=== PATIENT | male | born 1985 | race American Indian/Alaskan Native ===

== ENCOUNTER 2017-10-25 09:45 | Emergency (ER) | payer BC ==
[2017-10-25 09:52] VITALS: BMI 21.5
[2017-10-25 09:59] VITALS: RESP 18; TEMP 98.7
[2017-10-25] MEDS ORDERED: Oxycodone/Acetaminophen 5/325 mg Tab PO STA ×2 (10:00→13:03)
--- NOTE | 2017-10-25 10:08 | ED PDOC ---
Arrival/HPI - General Chief Complaint: Groin Pain Time Seen by Provider: 10/25/17 09:50 Historian: Patient - History of Present Illness Narrative History of Present Illness (Text): 10/25/17 10:03 32 year old male, with no significant past medical history, who presents to the emergency department complaining of left groin discomfort for 3 days. Patient notes he was playing soccer, when he felt mild left groin discomfort while kicking the ball. Patient didn't finish the game but was able to walk after the game. Patient notes pain didn't bother his walking or while he was at work initially, 3 days ago. Patient took over the counter medication with minimal relief. Patient states 2 days ago, while at work, the left groin pain became severe and today, when he woke up, he began experiencing trouble doing daily chores; pt is now having difficulty with just walking/changing positions. Patient denies any fever, chills, sweats, chest pain, shortness of breath, nausea, vomiting, diarrhea, urinary symptoms, back pain, neck pain, headache, dizziness, rectal/penile numbness/tingling, or any other complaints. pt is here for further eval. PCP: none Time/Duration: < week (3 days) Symptom Onset: Gradual Symptom Course: Worsening Severity Level: 8, Severe Activities at Onset: Significant Context: Home Past Medical History - Provider Review Nursing Documentation Reviewed: Yes - Travel History Have you recently traveled outside [place] w/in the past 3 mons?: No - Past History Past History: Non-Contributing - Infectious Disease Hx of Infectious Diseases: None - Psychiatric Hx Substance Use: No - Anesthesia Hx Anesthesia: No Family/Social History - Physician Review Nursing Documentation Reviewed: Yes Family/Social History: Unknown Family HX Smoking Status: Never Smoked Hx Alcohol Use: Yes Frequency of alcohol use: Socially Hx Substance Use: No Hx Substance Use Treatment: No Allergies/Home Meds Allergies/Adverse Reactions: Allergies No Known Allergies Allergy (Verified 10/25/17 09:52) Review of Systems - Physician Review All systems were reviewed & negative as marked: Yes - Review of Systems Constitutional: Normal Eyes: Normal ENT: Normal Respiratory: Normal. absent: SOB, Cough Cardiovascular: Normal. absent: Chest Pain Gastrointestinal: Normal. absent: Abdominal Pain, Diarrhea, Nausea, Vomiting Genitourinary Male: Normal. absent: Dysuria, Frequency Musculoskeletal: Other (left groin pain). absent: Back Pain, Neck Pain Skin: Normal. absent: Rash Neurological: Normal. absent: Headache, Dizziness Endocrine: Normal Hemo/Lymphatic: Normal Psychiatric: Normal Physical Exam - Physical Exam Narrative Physical Exam (Text): 10/25/17 10:11 General: alert/awake, GCS = 15, oriented x 3, resting in bed, uncomfortable, cooperative, interactive; mild-moderate distress noted due to pain Head: NC/AT EYE: PERRLA, EOMI, sclera anicteric, no nystagmus, no photophobia; visual field intact b/l Facial: WNL Oral: uvula/tongue are midline, no exudate/lesions, no drooling/stridor, no dysphonia; intact dentitions NECK: intact ROM, no midline tenderness, no nuchal rigidity, no meningeal signs ; no step off Chest: CTA b/l, no w/r/r; no tachypenia, no accessory muscle use noted Chest Wall: no crepitus, no lesions, no gross deformities, no focal tenderness Cardiac: +S1, +S2, no m/r/r, no tachycardia Abdominal: +BS, soft/nd, + left groin/inguinal/upper thigh region tenderness, well nourished patient; no masses/rebound/guarding/rigidity; no hollins's sign, no mcburney's point tenderness Extremities: decr ROM to left leg due to pain with knee flexion/leg raising, as described left groin/inguinal/upper thigh region tenderness with mild swelling noted on exam; strength 5/5 grossly intact in all limbs, neurovasc intact b/l; reflex +2/2; no gross deformities noted BACK: no step off, no midline tenderness, NO crepitus, no gross deformities noted; Intact ROM SKIN: cap refill < 1 sec, no ulcerations, no petechiae, no rashes; no gross pallor noted NEURO: CNII-XII WNL, no facial asymmetries, no slurr speech, oriented x 3 NIH stroke scale ~ 0 Psych: normal insight, normal affect; follows command with ease Vital Signs Reviewed: Yes Vital Signs Temp Pulse Resp BP Pulse Ox 10/25/17 14:09 78 18 124/76 99 10/25/17 09:45 98.7 F 79 18 121/80 98 Temperature: Afebrile Blood Pressure: Normal Pulse: Regular Respiratory Rate: Normal Appearance: Positive for: Well-Appearing, Non-Toxic, Uncomfortable. No: Comfortable, Ill-Appearing, Unkept Pain Distress: Mild Mental Status: Positive for: Alert and Oriented X 3 - Systems Exam Head: Present: Atraumatic, Normocephalic Medical Decision Making ED Course and Treatment: 10/25/17 10:11 Impression: 32 year old male presents to the emergency department complaining of left groin discomfort. left groin pain s/p soccer 3 days ago; ? muscle strain, unlikely complete tear, unlikely fracture Plan: -- US -- Urinalysis -- Valium -- Toradol -- Percocet -- Reassess and disposition Progress Notes: 1115am pt is feeling very mild improved pt is awaiting diagnostic results 10/25/17 13:[address] Faustin, ortho parachute cushion installer, made aware, agrees with emergency department mgt/txt, will see patient in his office tomorrow, agrees with crutches, pt can be discharged home with outpt f/u vital signs remained stable 10/25/17 1345 pt is made aware of his medical results pt is encouraged no heavy weight bearing; to ambulate with crutches; no contact sports pt is encouraged outpt follow up pt will be discharged home Re-evaluation Time: 13:30 Reassessment Condition: Improving,but remains with symptoms - Lab Interpretations Lab Results: Lab Results 10/25/17 11:18: Urine Color Light yellow, Urine Appearance Clear, Urine pH 7.0, Ur Specific [place] <= 1.005, Urine Protein Negative, Urine Glucose (UA) Negative, Urine Ketones Negative, Urine Blood Negative, Urine Nitrate Negative, Urine Bilirubin Negative, Urine Urobilinogen 0.2, Ur Leukocyte Esterase Negative I have reviewed the lab results: Yes Interpretation: All labs normal - RAD Interpretation Narrative RAD Interpretations (Text): 10/25/17 11:03 prelim report left groin u/s - NO hematoma/abnl noted, as per radiology PROCEDURE: Ultrasound soft tissue left lower extremity HISTORY: L groin/inguinal/abd region pain, s/p soccer mond COMPARISON: Not available TECHNIQUE: Targeted examination of the left inguinal region was performed utilizing a linear array color Doppler transducer. FINDINGS: There is no solid mass or fluid collection identified in the region of concern in the left inguinal region. Several unremarkable inguinal lymph nodes are identified, up to 5 mm in short axis. IMPRESSION: No evidence of hematoma in left inguinal region. Unremarkable examination. 10/25/17 13:47 pelvis/right hip xray - PROCEDURE: Left Hip and pelvis X-ray Radiographs. HISTORY: left groin pain, played soccer 3D ago, no trauma COMPARISON: None. FINDINGS: BONES: Normal. No fracture. JOINTS: Normal. SOFT TISSUES: Normal. OTHER FINDINGS: None. IMPRESSION: Negative study Radiology Orders: 10/25/17 11:00 EXTREMITY NON VASCULAR LT [US] Stat 10/25/17 12:52 Hip Left [HIP MIN 4V W/ PELVIS LT] [RAD] Stat Unit Assembler: Radiologist - Medication Orders Current Medication Orders: Discontinued Medications Diazepam (Valium) 5 mg PO ONCE ONE PRN Reason: Protocol Stop: 10/25/17 10:01 Last Admin: 10/25/17 10:11 Dose: 5 mg Ketorolac Tromethamine (Toradol) 30 mg IM STAT STA Stop: 10/25/17 10:00 Last Admin: 10/25/17 10:11 Dose: 30 mg MAR Pain Assessment Document 10/25/17 10:11 GMD (Rec: 10/25/17 10:11 GMD [id number]) Pain Reassessment Is this a pain reassessment? No Presence of Pain Presence of Pain Yes IM Administration Charges Document 10/25/17 10:11 GMD (Rec: 10/25/17 10:11 GMD [id number]) Charges for Administration # of IM Administrations 1 Oxycodone/Acetaminophen (Percocet 5/325 Mg Tab) 1 tab PO STAT STA Stop: 10/25/17 10:01 Last Admin: 10/25/17 10:11 Dose: 1 tab MAR Pain Assessment Document 10/25/17 10:11 GMD (Rec: 10/25/17 10:11 GMD [id number]) Pain Reassessment Is this a pain reassessment? No Oxycodone/Acetaminophen (Percocet 5/325 Mg Tab) 1 tab PO STAT STA Stop: 10/25/17 13:04 Last Admin: 10/25/17 13:52 Dose: 1 tab MAR Pain Assessment Document 10/25/17 13:52 GMD (Rec: 10/25/17 13:52 [facility] [id number]) Pain Reassessment Is this a pain reassessment? No Presence of Pain Presence of Pain Yes - Scribe Statement The provider has reviewed the documentation as recorded by the Scribavi Mccarty All medical record entries made by the Scribe were at my direction and personally dictated by me. I have reviewed the chart and agree that the record accurately reflects my personal performance of the history, physical exam, medical decision making, and the department course for this patient. I have also personally directed, reviewed, and agree with the discharge instructions and disposition. Disposition/Present on Arrival - Present on Arrival Any Indicators Present on Arrival: No History of DVT/PE: No History of Uncontrolled Diabetes: No Urinary Catheter: No History of Decub. Ulcer: No History Surgical Site Infection Following: None - Disposition Have Diagnosis and Disposition been Completed?: Yes Diagnosis: Strain of left inguinal muscle Disposition: HOME/ ROUTINE Disposition Time: 14:00 Patient Plan: Discharge Condition: STABLE Discharge Instructions (ExitCare): Muscle Strain, Groin Strain Print Language: HUNGARIAN Additional Instructions: Make sure to see your doctor in 1-2 days DRINK PLENTY OF FLUIDS AVOID contact sports AVOID prolonged standing/walking AVOID heavy weight bearing take your medications as prescribed RETURN TO ED IF worse pain, cant breath, persistent vomiting, high fever >101- 102 for hours, altered behavior, slurr speech, facial changes, focal weakness ( arm/leg or both), unable to urinate, heavy/persistent bleeding, passing out, chest pain, or other medical emergencies Prescriptions: diaZEpam [Valium] 5 mg PO TID PRN #12 tab PRN Reason: Muscle Spasm Ibuprofen [Motrin] 600 mg PO QID PRN #30 tab PRN Reason: Pain, Mild (1-3) oxyCODONE/Acetaminophen [Percocet 5/325 mg Tab] 1 tab PO TID PRN #12 tab PRN Reason: Pain, Moderate (4-7) Referrals: Chris Faustin MD [Staff Provider] - Follow up with primary [facility] [Outside] - Follow up with primary [facility] [Outside] - Follow up with primary [facility] [place] - Follow up with primary Forms: [employer] (Faroese), WORK NOTE
[2017-10-25 11:29] LABS: URINE BILIRUBIN NEGATIVE (NEGATIVE); URINE BLOOD NEGATIVE (NEGATIVE); URINE GLUCOSE (UA) NEGATIVE (NEGATIVE); URINE LEUKOCYTE ESTERASE NEGATIVE Leu/uL (NEGATIVE); URINE PROTEIN NEGATIVE mg/dL (<30 mg/dL); URINE UROBILINOGEN 0.2 E.U./dL (<1 E.U./dL)
[2017-10-25 11:32] LABS: URINE APPEARANCE CLEAR (CLEAR); URINE COLOR LIGHT YELLOW (YELLOW)
--- NOTE | 2017-10-25 13:28 | US ---
PROCEDURE: Ultrasound soft tissue left lower extremity HISTORY: L groin/inguinal/abd region pain, s/p soccer mond COMPARISON: Not available TECHNIQUE: Targeted examination of the left inguinal region was performed utilizing a linear array color Doppler transducer. FINDINGS: There is no solid mass or fluid collection identified in the region of concern in the left inguinal region. Several unremarkable inguinal lymph nodes are identified, up to 5 mm in short axis. IMPRESSION: No evidence of hematoma in left inguinal region. Unremarkable examination.
[2017-10-25 14:09] VITALS: BP 124/76; PULSE 78; O2SAT 99
--- NOTE | 2017-10-25 14:37 | RAD ---
PROCEDURE: Left Hip and pelvis X-ray Radiographs. HISTORY: left groin pain, played soccer 3D ago, no trauma COMPARISON: None. FINDINGS: BONES: Normal. No fracture. JOINTS: Normal. SOFT TISSUES: Normal. OTHER FINDINGS: None. IMPRESSION: Negative study
== END 2017-10-25 14:09 | disposition home or self-care (01) ==
LOC: ED 09:45
DX: S39.011A Strain of muscle, fascia and tendon of abdomen, initial encounter (principal); Y93.66 Activity, soccer
CPT/HCPCS: 73503; 76881; 81003; 96372; 99283; J1885